=== PATIENT | female | born 1990 | race Caucasian/White ===

== ENCOUNTER 2025-05-10 16:45 | Emergency (ER) | payer OTHER, SELFPAY ==
[2025-05-10 17:14] VITALS: BP 133/82
[2025-05-10 17:38] LABS: Hematocrit 32.8 % (37.0-47.0); Hemoglobin 11.1 g/dL (12.0-16.0); Mean Corp Hgb Conc. 33.8 g/dL (33.0-37.0); Mean Corpuscular Volume 87.2 fL (81.0-99.0); Nucleated Red Blood Cells % 0 %; Platelet Count 390 10^3/uL (130-400); Red Cell Dist. Width 12.7 % (11.5-14.5)
[2025-05-10 17:53] LABS: HCG, Serum Qualitative Screen Negative
[2025-05-10 17:55] LABS: INR 1.10; PT 14.5 Sec (11.4-14.6)
[2025-05-10 18:03] LABS: Troponin I < 0.012 ng/ml
[2025-05-10 18:04] LABS: ALT (SGPT) 16 U/L (0-35); AST (SGOT) 20 U/L (14-36); Albumin 4.0 g/dl (3.5-5.0); Alkaline Phosphatase 84 U/L (38-126); Blood Urea Nitrogen 18 mg/dl (7-17); Calcium 9.4 mg/dl (8.4-10.2); Carbon Dioxide 26 mmol/L (22-30); Chloride 102 mmol/L (98-107); Glucose 112 mg/dl (70-99); Lipase 34 U/L (23-300); Potassium 4.7 mmol/L (3.5-5.1); Sodium 135 mmol/L (135-145); Total Protein 6.9 g/dl (6.3-8.2); eGFR > 60.00
[2025-05-10 19:42] VITALS: BP 136/89
--- NOTE | 2025-05-10 19:58 | ED.GENMED ---
History of Present Illness
General
Chief Complaint: Chest Pain
Source: patient
Exam Limitations: none
Time Seen by Provider: 05/10/25 19:43
Nursing documentation reviewed up to this point in time: agreed with
History of Present Illness
History of Present Illness:
Patient is a 35-year-old female past medical history of MS presents to the ER for evaluation of chest pain.. She reports she has had a cough for the past 2 weeks and then today while at work developed right-sided chest pain around 4 PM. She denies
any injury. She does report pain is worse with deep breath. She is not short of breath. She is on control. She does not smoke. No prior history of DVT PE. She did not take anything for pain. She did take NyQuil earlier today
Phy Exam
General Physical Exam
General Presentation: no apparent distress
General age: appears stated age
General Skin: warm and dry
General Habitus: normal
General Mental: alert
General Hydration: appears well hydrated
Cardiovascular Exam
Cardiovascular Exam: regular rate/rhythm, no murmur and normal peripheral pulses
Pulmonary Exam
Pulmonary Exam: lungs clear and no respiratory distress
Neurological Exam
Neurological Exam: alert and oriented x3
Musculoskeletal Exam
Musculoskeletal Exam: full ROM
Skin Exam
Skin Exam: normal color and warm/dry
Psychiatric Exam
Psychiatric Exam: normal mood/affect
Scores
Heart Score for Chest Pain Patients
STEMI patient?: Not applicable
Course
Orders/Labs/Results
Orders:
Orders
05/10/25 17:18
Electrocardiogram (*1) Urgent
Reason for Study: Chest Pain
EKG- Treatment ONCE
Test Result ONCE
05/10/25 17:29
Complete Blood Count/With Diff Urgent
Comprehensive Metabolic Panel Urgent
HCG, Serum Qualitative Screen Urgent
Lipase Urgent
Prothrombin Time Urgent
Troponin I Urgent
05/10/25 20:04
Ketorolac [Toradol] 15 mg IV NOW STA
05/10/25 20:05
0.9% Sodium Chloride 1000 ml [Nss] 1,000 ml IV BOLUS
05/10/25 20:23
COVID-19 Antigen Urgent
Source: Nasal Swab
DDimer [D-Dimer] Urgent
Influenza A+B Rapid Molecular Urgent
ELVIA Source: Nasal Swab
Specimen Description:
05/10/25 21:04
Electrocardiogram (*1) Urgent
Reason for Study: Chest Pain
EKG- Treatment ONCE
Chest [CR Chest - 2 Views ] Urgent
Comment:
Reason For Exam: CP RECENT COUGH
05/10/25 21:32
Troponin I Urgent
05/10/25 21:50
Amoxicillin 875 mg/Clav 125 mg [Augmentin 875 mg/125 mg] 1 tablet PO NOW STA
Doxycycline [Vibramycin] 100 mg PO NOW STA
Abnormal Lab Results
05/10/25
17:29
WBC 14.2 H 10^3/uL
(4.8-10.8)
RBC 3.76 L 10^6/uL
(4.20-5.40)
Hgb 11.1 L g/dL
(12.0-16.0)
Hct 32.8 L %
(37.0-47.0)
Abs Immat Gran (auto) 0.1 H 10^3/uL
(0-0.05)
Absolute Neuts (auto) 12.1 H 10^3/uL
(1.4-6.5)
Absolute Lymphs (auto) 0.7 L 10^3/uL
(1.2-3.4)
Absolute Monos (auto) 1.3 H 10^3/uL
(0.1-0.6)
Neutrophils % 85.1 H %
(42.2-75.2)
Lymphocytes % 4.8 L %
(20.5-51.1)
BUN 18 H mg/dl
(7-17)
Glucose 112 H mg/dl
(70-99)
05/10/25 17:29
05/10/25 17:29
Vital Signs
Initial and Last Documented VS:
Initial Vital Signs
Temp Pulse Resp BP Pulse Ox
99.7 F 96 18 133/82 97
05/10/25 17:14 05/10/25 17:14 05/10/25 17:14 05/10/25 17:14 05/10/25 17:14
Last Documented Vital Signs
Temp Pulse Resp BP Pulse Ox
99.7 F 105 32 134/81 100
05/10/25 17:14 05/10/25 22:00 05/10/25 22:00 05/10/25 22:00 05/10/25 22:00
MDM/Problems Addressed
Differential Diagnosis Includes:
Not limited to URI, bronchitis, pneumonia, PE, pleuritic chest pain less likely ACS
MDM/Problems Addressed:
Patient is a 35-year-old female with MS presented with cough for the past 2 weeks right-sided chest pain worse with taking a deep breath. She is on control D-dimer performed and negative. She is not a smoker. X-ray shows an obvious right
middle lobe pneumonia. She however is awake alert no acute distress. Case reviewed with ED physician will DC with Augmentin and doxycycline
Chronic conditions affecting care:
MS
*Radiology
Radiology exam reviewed: preliminary read by ED provider (Right lower lobe pneumonia)
*Pulse Oximetry
SaO2: 97
Oxygen Mode of Delivery: Room air
Patient hypoxic: no
*EKG
Interpreted by ED Provider?: Yes
Heart Rate: 87
Rate: normal
Ischemia: other (Repeat EKG unremarkable)
*Critical Care Note
Total Time (30-74mins, 75-104mins- exclusive of procedures): Not Applicable
ED Attending Note
-
Portions of this chart may have been created with voice recognition software.� Occasional wrong word or��sound alike� substitutions may have occurred due to the inherent limitations of voice recognition software.
Discharge Plan
Departure
Patient Disposition: Home (Routine Discharge)
Date of Disposition: 05/10/25
Time of Disposition: 22:20
Patient with high blood pressure during this ER visit?: Yes
Condition: Fair
Covid-19: Not Applicable
Discharge Problem:
Pneumonia
Instructions: Pneumonia in adults - ED (DC), BLOOD PRESSURE
Prescriptions:
New
amoxicillin-pot clavulanate 875-125 mg tablet
1 tab PO BID Qty: 20 0RF
doxycycline hyclate 100 mg tablet
100 mg PO BID Qty: 20 0RF
Referrals:
NONE,* [Family Provider, Internal Medicine]
Activity Restrictions/Additional Instructions:
As discussed you have a right lobe pneumonia. Antibiotics twice daily for the next 10 days. You are prescribed both Augmentin and doxycycline these medicines were sent to your pharmacy. Be sure to get plenty of rest. Stay well-hydrated.
Follow-up with a family doctor in the next 7 days return if any worsening of symptoms.
Interventions
Interventions:
*Risk Screen - Suicide Last Done: 05/10/25 17:14
*General Assessment Last Done: 05/10/25 17:14
*Neglect/Abuse Screening Last Done: 05/10/25 19:41
*ED- Fall Risk Assessment Last Done: 05/10/25 19:41
*ED COVID-19 Vaccine History Last Done: 05/10/25 19:41
ED- Cardiac Assessment Last Done: 05/10/25 19:42
Discharge Date and Time
Print Language: FAROESE
[2025-05-10 20:00] VITALS: BP 134/82
[2025-05-10] MEDS: TORADOL 15 MG IV (20:29)
[2025-05-10] MEDS: NSS 1000 IV (20:29)
[2025-05-10 20:49] LABS: D-Dimer 0.48 ug/mlFEU (0.00-0.50)
[2025-05-10 20:53] LABS: COVID-19 Antigen Negative (Negative)
[2025-05-10 21:00] VITALS: BP 131/85
[2025-05-10 22:00] VITALS: BP 134/81
[2025-05-10] MEDS: AUGMENTIN 875 MG/125 MG 1 TABLET PO (22:01)
[2025-05-10] MEDS: VIBRAMYCIN 100 MG PO (22:01)
[2025-05-10 22:05] LABS: Troponin I < 0.012 ng/ml
== END 2025-05-10 22:42 | disposition home or self-care (01) ==
LOC: EMR 16:45
PROVIDERS: Emergency Medicine; Nurse Practitioner; EMERGENCY PHYSICIAN Student in an Organized Health Care Education/Training Program
DX: J18.9 Pneumonia, unspecified organism (principal); G35 Multiple sclerosis
CPT/HCPCS: 99283; 96374; 96361; 71046; 80053; 83690; 84484; 84703; 85025; 85379; 85610; 87502; 87811; 93005

== ENCOUNTER 2025-08-29 20:04 | Emergency (ER) | payer OTHER, SELFPAY ==
[2025-08-29 20:05] VITALS: BP 134/91
[2025-08-29 22:05] VITALS: BP 131/91
--- NOTE | 2025-08-29 23:03 | ED.SKININJ ---
HPI-Injury
General
Chief Complaint: Skin Surface Trauma
Source: patient
Exam Limitations: none
Time Seen by Provider: 08/29/25 21:28
Nursing documentation reviewed up to this point in time: agreed with
History of Present Illness-Injury
Is this injury a work related problem?: Yes
Is pt an associate of [facility]?: No
Initial Injury comments:
Patient to emergency department for evaluation of laceration to the left distal thumb. Patient states she accidentally cut her thumb with a knife while cutting lettuce. Injury occurred tonight. She is brought self to the emergency department for
evaluation
Past History
Past History
ED Past Medical History: None
Review of Systems
Review of Systems
Allergies reviewed?: Yes
All Other Systems: ROS reviewed and negative except as documented in HPI and ROS
Constitutional: Reports no symptoms
Musculoskeletal: Reports no symptoms
Skin: Reports other (Laceration to distal left thumb)
Neurological: Reports no symptoms
Psychiatric: Reports no symptoms
Skin Exam
Laceration
Left Distal Thumb:
Length in cm: 2
Orientation: horizontal
Type of Laceration: simple
Any active bleeding?: no active bleeding
Distal skin color and temperature: normal-warm & good color
Normal distal neurovascular exam: Yes
Range of motion: full
Phy Exam
General Physical Exam
General Presentation: well appearing and no apparent distress
General age: appears stated age
General Skin: warm and dry
General Habitus: normal
Musculoskeletal Exam
Musculoskeletal Exam: full ROM and neuro vasc intact
Skin Exam
Skin Exam: normal color, warm/dry and no rash
Psychiatric Exam
Psychiatric Exam: normal mood/affect
Course
Vital Signs
Initial and Last Documented VS:
Initial Vital Signs
Temp Pulse Resp BP Pulse Ox
98.4 F 66 20 134/91 100
08/29/25 20:05 08/29/25 20:05 08/29/25 20:05 08/29/25 20:05 08/29/25 20:05
Last Documented Vital Signs
Temp Pulse Resp BP Pulse Ox
98.4 F 74 18 131/91 100
08/29/25 20:05 08/29/25 22:05 08/29/25 22:05 08/29/25 22:05 08/29/25 22:05
Procedures
Laceration Closure
Distal Thumb:
Status of Wound: clean
Description of Wound Edges: sharp
Preparation: cleaned with saline and cleaned with Betadine
Anesthesia: 1% Lidocaine and Digital-Regional
Revision/Debridement: routine- no revision
Wound exploration: explored to base- no FB and no tendon involvement
Type of Closure: single layer closure
Skin Closure Material: 5-0 prolene
*Pulse Oximetry
SaO2: 100
Oxygen Mode of Delivery: Room air
Patient hypoxic: no
*Critical Care Note
Total Time (30-74mins, 75-104mins- exclusive of procedures): Not Applicable
Update Note
Update Note:
Patient to emergency department for evaluation of laceration to left distal thumb. Patient states she accidentally cut self with a knife while cutting lettuce tonight at work. Laceration was closed bedside without difficulty, patient tolerated
procedure without incident. She will be discharged home and will follow closely with PCP. She was given instructions on signs and symptoms to return to the emergency department and she is agreeable to this plan.
ED Attending Note
-
Portions of this chart may have been created with voice recognition software.� Occasional wrong word or��sound alike� substitutions may have occurred due to the inherent limitations of voice recognition software.
Discharge Plan
Departure
Patient Disposition: Home (Routine Discharge)
Date of Disposition: 08/29/25
Time of Disposition: 22:03
Patient with high blood pressure during this ER visit?: No
Condition: Good
Covid-19: Not Applicable
Discharge Problem:
Laceration of thumb
Instructions: Laceration Repair With Stitches (DC)
Prescriptions:
No Action
amoxicillin-pot clavulanate 875-125 mg tablet
1 tab PO BID Qty: 20 0RF
doxycycline hyclate 100 mg tablet
100 mg PO BID Qty: 20 0RF
Activity Restrictions/Additional Instructions:
Sutures can be removed in 7 to 10 days by your family doctor
Interventions
Interventions:
*Risk Screen - Suicide Last Done: 08/29/25 20:05
*General Assessment Last Done: 08/29/25 20:05
*Neglect/Abuse Screening Last Done: 08/29/25 20:05
*ED COVID-19 Vaccine History Last Done: 08/29/25 20:05
*ED Influenza Vaccine History Last Done: 08/29/25 20:05
[facility] Fall Risk Assessment Tool Last Done: 08/29/25 20:35
*Nursing Disposition Last Done: 08/29/25 22:05
ED-Skin Assessment Last Done: 08/29/25 20:35
Discharge Date and Time
Discharge Date/Time: 08/29/25 22:08
Print Language: GREEK
== END 2025-08-29 22:08 | disposition home or self-care (01) ==
LOC: EMR 20:04
PROVIDERS: EMERGENCY PHYSICIAN Emergency Medicine
DX: S61.012A Laceration without foreign body of left thumb without damage to nail, initial encounter (principal); W26.0XXA Contact with knife, initial encounter
CPT/HCPCS: 99282